=== PATIENT | female | born 1955 | race Caucasian/White ===

== ENCOUNTER → 2019-02-18 13:47 | Outpatient (CLI) | payer BC, SELFPAY ==
--- NOTE | 2019-02-18 13:47 | XR_ITS ---
XR wrist RT min 3V Ordering Physician: Bobby Perez MD Patient Age: 63 years: Female HISTORY: ITS.REASON: right distal radius fracture/ xrays in cast TECHNIQUE: 3 views right wrist. In cast. COMPARISON :Previous right wrist 02/09/2019. FINDINGS Fiberglas cast is in place partially obscuring osseous detail. The nondisplaced fracture at the transversing the distal radius is only faintly evident on the frontal projection... . There is good position and alignment at the fracture and all views. Arthritic changes first carpal-metacarpal joint otherwise noted IMPRESSION: Fracture distal radius. Good, stable position. In cast. .
--- NOTE | 2019-02-18 13:47 | XR_ITS ---
DEXA SCAN.-BONE DENSITY STUDY HIPS AND LUMBAR SPINE HISTORY: Postmenopausal female female hypothyroidism history of fracture. Takes calcium and levothyroxin and vitamin D TECHNIQUE: DEXA scan hip and lumbar spine The most complete data summary and color graphic presentation of the today's ( and any prior ) DEXA findings are available in PACS. Definition and treatment guidelines included. COMPARISON: None listed LUMBAR SPINE: L3 vertebral body demonstrates the lowest T score -0.2 with BMD1.173 g/cm sq Overall mean lumbar L1-L4 T score -1.1 with BMD1.051 g/cm sq . HIPS: Femoral neck density is best predictor of hip fracture risk . Right femoral neck demonstrates the lowest T score -1.7 with BMD0.796 g/cm sq . Left femoral neck T score -1.4 with BMD 0.849. Averaging all areas, yields today's Hip Mean T score -0.4 with BMD0.957 g/cm sq . . IMPRESSION 1. LUMBAR SPINE: Normal bone density lumbar spine. Overall and at all levels 2. HIPS: Overall bone density at hips WNL with T score = -0.4 However would note Osteopenia at the femoral necks bilaterally. Period Right femoral neck T score -1.7 and left T score -1.4 WHO criteria for post-menopausal, Women: Normal: T-score at or above -1 SD Osteopenia: T-score between -1 and -2.5 SD Osteoporosis: T-score at or below -2.5 SD
== END ==
PROVIDERS: PCP Physician Assistant; Visit Provider Orthopaedic Surgery
DX: Z13.820 Encounter for screening for osteoporosis (principal); S52.501A Unspecified fracture of the lower end of right radius, initial encounter for closed fracture
CPT/HCPCS: 73110; 77080

== ENCOUNTER → 2019-02-25 14:24 | Outpatient (CLI) | payer BC, SELFPAY ==
--- NOTE | 2019-02-25 14:28 | XR_ITS ---
XR wrist RT min 3V HISTORY follow-up fracture ITS.REASON: right wrist fracture ORDERING PHYSICIAN: Bobby Perez MD PATIENT AGE: 63 years Comparison: 02/18/2019 FINDINGS: Cast remains in place obscuring bony detail. Nondisplaced distal radial fracture remains in good alignment with the fracture line obscured by the overlying cast. IMPRESSION: Good alignment distal radial fracture with cast in place
== END ==
PROVIDERS: PCP Physician Assistant; Visit Provider Orthopaedic Surgery
DX: S52.501A Unspecified fracture of the lower end of right radius, initial encounter for closed fracture (principal)
CPT/HCPCS: 73110

== ENCOUNTER → 2019-03-25 13:59 | Outpatient (CLI) | payer BC, SELFPAY ==
--- NOTE | 2019-03-25 14:02 | XR_ITS ---
XR wrist RT min 3V HISTORY follow-up fracture ITS.REASON: out of cast ORDERING PHYSICIAN: Bobby Perez MD PATIENT AGE: 63 years Comparison: 02/25/2019 FINDINGS: Casted been removed. A nondisplaced transverse distal radial fracture with good alignment. Fracture line is still visible although there is some sclerosis at the fracture site. IMPRESSION: Healing nondisplaced distal radial fracture with good alignment
== END ==
PROVIDERS: PCP Physician Assistant; Visit Provider Orthopaedic Surgery
DX: S52.501A Unspecified fracture of the lower end of right radius, initial encounter for closed fracture (principal)
CPT/HCPCS: 73110

== ENCOUNTER 2019-03-25 15:06 | Outpatient (RCR) | payer BC, SELFPAY | END 2019-03-25 15:10 | disposition home or self-care (01) | LOC: OT 15:06 | PROVIDERS: Visit Provider Orthopaedic Surgery | DX: S52.571D Other intraarticular fracture of lower end of right radius, subsequent encounter for closed fracture with routine healing (principal) | CPT/HCPCS: 97763 ==

== ENCOUNTER 2019-03-30 11:00 | Outpatient (RCR) | payer BC, SELFPAY ==
--- NOTE | 2019-03-30 11:52 | HMH.OTOPEV ---
OT Inpatient Evaluation Rehab OT Outpatient Eval Start: 03/30/19 11:41 Freq: Status: Active Protocol: Document 03/30/19 11:41 [email or web address] (Rec: 03/30/19 11:52 [id number] Electronically Signed By Rojas Valadez OT 03/30/19 11:41 Outpatient Therapy Subjective History Subjective History Pt is a 63 year old female who reports to therapy for initial evaluation to right wrist. Approximately 6 weeks ago, pt was climbing over a baby gate and fell. Pt fractured her right distal radius. Pt recently go out of a cast, but continues to wear and wrist cock up brace for protection. Pt demosntrates with decreased AROM/Strength and adult protective caseworker strength at right wrist/hand. Pt will continue to be seen twice a week in order to address all deficits. Chief Complaint Pain,Stiff,Weakness,Decreased Process Control Supervisor Strength Symptom Type Ache,Dull Symptoms Relieved By Nothing Symptoms Aggravated By Physical Activity,Lifting Prior Functional Limitations None Current Functional Limitations Reaching,Lifting,Housework, Dressing,Driving,Sleeping Symptom Description Activity Dependent Level of pain today (0-10) 0 Pain scale - at its best (0-10) 0 Pain scale - at its worst (0-10) 2 Wrist/Hand Eval Wrist Range of Motion Right Wrist Limitations of Range of Motion Muscle Weakness Wrist Extension Active Range of Motion ( 42 degrees degrees) Wrist Flexion Active Range of Motion ( 42 degrees degrees) Wrist Radial Deviation Active Range of 28 degrees Motion (degrees) Wrist Ulnar Deviation Active Range of 26 degrees Motion (degrees) Forearm Supination Active Range of 90 degrees Motion (degrees) Forearm Pronation Active Range of Motion 90 degrees (degrees) Wrist Manual Muscle Testing Right Wrist Extension Strength Grade 4- Good- Wrist Flexion Strength Grade 3+ Fair+ Wrist Radial Deviation Strength Grade 4- Good- Wrist Ulnar Deviation Strength Grade 4- Good- Forearm Supination Strength Grade 3+ Fair+ Forearm Pronation Strength Grade 3+ Fair+ Process Control Supervisor/Pinch Strength Left Process Control Supervisor Strength Measurement (lbs) 40 Right Process Control Supervisor Strength Measurement (lbs) 18 OT Outpatient Assessment Impairments Problems/Impairments Palpation Tenderness,Impair
== END 2019-03-30 11:05 | disposition home or self-care (01) ==
LOC: OT 11:00
PROVIDERS: Visit Provider Orthopaedic Surgery
DX: S52.571D Other intraarticular fracture of lower end of right radius, subsequent encounter for closed fracture with routine healing (principal)
CPT/HCPCS: 97166

== ENCOUNTER 2020-08-22 15:01 | Emergency (ER) | payer BC, SELFPAY ==
[2020-08-22 15:02] VITALS: BP 171/95; PULSE 113; RESP 19; TEMP 37; O2SAT 100; BMI 28.1
[2020-08-22 15:24] VITALS: BMI 28.1
--- NOTE | 2020-08-22 15:28 | CT_ITS ---
PROCEDURE: CT ABDOMEN PELVIS W CON CLINICAL INDICATION: LLQ abd pain, L flank pain, diarrhea COMPARISON: No exams were available for comparison TECHNIQUE: IV Contrast: 75ML OPTIRAY 350 Oral Contrast None Axial images obtained with sagittal and coronal reformats. All CT scans at the facility use one or more dose reduction, viz: automated exposure control, ma/kV adjustment per patient size (including targeted exams where dose is matched to indication, i.e. head), or iterative reconstruction technique. FINDINGS: LOWER THORAX: There is an 11 mm noncalcified nodule in the right middle lobe. There are some atelectatic or fibrotic changes in the right middle lobe inferiorly. ABDOMEN & PELVIS: The liver, spleen, adrenal glands, and pancreas have an unremarkable appearance. There are few small periportal lymph nodes which measure up to 12 mm. These are nonspecific. The right kidney contains a few cortical cysts. There is a 6 by 3 mm stone and the left ureteropelvic junction causing mild left-sided hydronephrosis. There is mild haziness of the outline of the left kidney with some minimal perinephric fluid which could be due to pyelonephritis. There is some minimal peripheral enhancement of the left ureter. There are multiple pelvic calcifications consistent with phleboliths. There has been a prior hysterectomy. No evidence of appendicitis. No acute bony anomalies. IMPRESSION: 6 x 3 mm left ureteropelvic junction stone with mild left-sided hydronephrosis. Mild haziness of the left renal outline with minimal left perinephric fluid and minimal enhancement of the left ureter. These findings may indicate superimposed pyelonephritis/urinary tract infection along with the UPJ obstruction Indeterminate 11 mm noncalcified nodule in the right middle lobe. Suggest dedicated nonemergent chest CT for further evaluation Dictated by: Aditya aCmacho MD 08/22/2020 16:57 Aditya Camacho MD in [facility] 08/22/2020 16:57
[2020-08-22 15:35] LABS: Basophils % 0.3 % (0.1-2.0); Eosinophils # 0.1 K/mm3 (0.0-0.4); Eosinophils % 0.7 % (0.1-12.0); Hematocrit 49.2 % (37.0-47.0); Hemoglobin 16.1 g/dL (12.2-16.2); Lymphocytes # 1.8 K/mm3 (0.7-4.5); Lymphocytes % 12.1 % (10-50); Mean Corpuscular HGB Conc 32.8 g/dL (31.8-35.4); Mean Corpuscular Volume 91.6 fl (81-99); Microscopic, Urine URINE MICROSCOPIC (MICROSCOPIC); Monocytes # 0.7 K/mm3 (0.1-1.0); Monocytes % 4.7 % (1.7-9.3); Neutrophils # 12.4 K/mm3 (1.8-7.8); Neutrophils % 82.2 % (37.0-80.0); Platelet Count 257 K/mm3 (142-424); Red Blood Count 5.37 M/mm3 (4.20-5.40); Red Cell Distribution Width 12.9 % (11.5-17.5); White Blood Count 15.1 K/mm3 (4.8-10.8)
[2020-08-22 15:37] LABS: Chloride 105 mmol/L (98-107)
[2020-08-22 15:38] LABS: Potassium 4.3 mmoL/L (3.5-5.1); Sodium 142 mmol/L (136-145)
[2020-08-22 15:39] VITALS: BP 161/88; PULSE 89; RESP 20; O2SAT 94
[2020-08-22 15:39] LABS: MANUAL DIFFERENTIAL MANUAL DIFFERENTIAL (MANUAL DIFF)
[2020-08-22 15:40] LABS: Amylase 78 U/L (30-110); Appearance,Urine CLEAR (Clear); Bilirubin,Urine Negative (Negative); Blood, Urine 3+ (Negative); Color,Urine YELLOW (Yellow); Glucose,Urine (UA) 2+ (Negative); Ketones,Urine TRACE (Negative); Leukocyte Esterase,Urine Negative (Negative); Nitrate,Urine Negative (Negative); Protein,Urine Negative (Negative); Specific Gravity, Urine 1.015 (1.005-1.030); Urobilinogen,Urine 0.2 EU/dl (0.2)
[2020-08-22 15:41] LABS: Anion Gap 13.3 mEq/L (5-15); Blood Urea Nitrogen 12 mg/dl (7-17); Calcium 9.9 mg/dl (8.4-10.2); Carbon Dioxide 28 mmol/L (22.0-30.0); Creatinine Clearance Estimated 67 mL/min (50-200); Estimated Glomerular Filt Rate 50 ml/min (>60); GFR (African American) 61 ML/MIN (>60); Glucose 148 mg/dl (74-100); Lipase 116 U/L (23-300)
[2020-08-22 15:44] LABS: Eosinophils % 2 % (0-3); Lymphocytes % 10 % (10-50); Monocytes % 4 % (2-9); Neutrophils % 84 % (42-76); Total Cells Counted 100
[2020-08-22 15:45] LABS: Platelet Estimate Normal; RBC Morphology Normal
[2020-08-22 16:00] VITALS: BP 154/89; PULSE 91; RESP 18; O2SAT 97
--- NOTE | 2020-08-22 16:20 | HMH.EDABDPAI ---
ED Disposition Clinical Impression: Kidney stone on left side Disposition: Home, Self-Care Condition on Discharge: Good Instructions: DI for Kidney Stones Prescriptions: Tamsulosin HCl [Flomax 0.4mg capsule] 0.4 mg PO HS #7 cap Prescription Printed Hydrocodone/Acetaminophen [[place] 5-325 Tablet] 1 each PO TID #10 tab Prescription Printed Ondansetron [Zofran 4mg ODT] 4 mg PO TIDP PRN #10 tab PRN Reason: Nausea Prescription Printed Referrals: Yarely Hay [Primary Care Provider] - Quincy Vargas MD [Staff Physician] - - Critical Care Critical Care Time: No Attestation: On 08/22/20, the high probability of a clinically significant, sudden or life threatening deterioration of the following system(s) required my full and direct attention, intervention and personal management. The time I documented below is in addition to time spent performing reported procedures but includes the following listed in this critical care notation. Medical Decision Making - Medical Records Medical records reviewed: Yes: I reviewed the patient's medical records. - Thomas Inquiry Pt receiving controlled substance: No Vital Signs: 08/22/20 15:02 08/22/20 15:39 08/22/20 16:00 Temperature 98.6 F Temperature Source Oral Pulse Rate [Left Radial] 113 H 89 91 H Respiratory Rate 19 20 18 Blood Pressure [Right Arm] 171/95 H 161/88 H 154/89 H Blood Pressure Mean [Right Arm] 120 112 110 Blood Pressure Source [Right Arm] Automatic Cuff Automatic Cuff Automatic Cuff Blood Pressure Position [Right Arm] Sitting Sitting 02 Sat by Pulse Oximetry 100 94 L 97 Oxygen Delivery Method Room Air Room Air Room Air - Lab Data Lab Results 08/22/20 15:15: Urine Color Yellow, Urine Appearance Clear, Urine pH 6.0, Ur Specific [place] 1.015, Urine Protein Negative, Urine Glucose (UA) 2+, Urine Ketones Trace, Urine Blood 3+, Urine Nitrate Negative, Urine Bilirubin Negative, Urine Urobilinogen 0.2, Ur Leukocyte Esterase Negative, Urine RBC 10-20, Urine WBC 3-5, Ur Squamous Epith Cells 3-5 08/22/20 15:15: WBC 15.1 H, RBC 5.37, Hgb 16.1, Hct 49.2 H, MCV 91.6, MCH 30.0, MCHC 32.8, RDW 12.9, Plt Count 257, MPV 8.0, Neut % (Auto) 82.2 H, Lymph % (Auto) 12.1, Giles % (Auto) 4.7, Eos % (Auto) 0.7, Baso % (Auto) 0.3, Neut # (Auto) 12.4 H, Lymph # (Auto) 1.8, Giles # (Auto) 0.7, Eos # (Auto) 0.1, Baso # (Auto) 0.0, Total Counted 100, Neutrophils % (Manual) 84 H, Lymphocytes % (Manual) 10, Monocytes % (Manual) 4, Eosinophils % (Manual) 2, Platelet Estimate Normal, RBC Morphology Normal 08/22/20 15:15: Sodium 142, Potassium 4.3, Chloride 105, Carbon Dioxide 28, Anion Gap 13.3, BUN 12, Creatinine 1.10 H, Estimated Creat Clear 67, Estimated GFR 50 L, Est GFR ( Amer) 61, Glucose 148 H, Calcium 9.9, Amylase 78, Lipase 116 Result diagrams: 08/22/20 15:15 08/22/20 15:15 Orders (Tests/Meds): ED MEDICATIONS Generic Name Dose Route Start Last Admin Trade Name Freq PRN Reason Stop Dose Admin Sodium Chloride 10 ml 08/22/20 16:21 08/22/20 16:22 Sodium Chloride 0.9% 10ml Syr (Rad Only) IV 09/21/20 16:20 10 ml NEEDED PRN Administration Maintain IV Site Discontinued Medications Generic Name Dose Route Start Last Admin Trade Name Freq PRN Reason Stop Dose Admin Sodium Chloride 1,000 mls @ 999 mls/hr 08/22/20 15:30 08/22/20 15:28 Sod Chlor 0.9% 1000ml Bag IV 08/22/20 16:30 999 mls/hr .Q1H1M KENYA Administration Ioversol 75 ml 08/22/20 16:21 08/22/20 16:22 Ioversol-350 (74%) 100ml Vial IV 08/22/20 16:22 75 ml ONCE ONE Administration Protocol Ketorolac Tromethamine 30 mg 08/22/20 15:25 08/22/20 15:29 Ketorolac 30mg/Ml Vial IV 08/22/20 15:26 30 mg ONCE ONE Administration Morphine Sulfate 4 mg 08/22/20 17:12 Morphine 4mg/Ml Syringe IV 08/22/20 17:13 ONCE ONE Ondansetron HCl 4 mg 08/22/20 15:25 08/22/20 15:29 Ondansetron 4mg/2ml Vial IV 08/22/20 15:26 4 mg ONCE ONE Admin
[2020-08-22 17:42] VITALS: BP 145/85; PULSE 84; RESP 15; TEMP 37; O2SAT 99
== END 2020-08-22 17:43 | disposition home or self-care (01) ==
PROVIDERS: Emergency Provider Emergency Medicine; PCP Physician Assistant
DX: N20.0 Calculus of kidney (principal); I10 Essential (primary) hypertension; E11.9 Type 2 diabetes mellitus without complications; Z79.84 Long term (current) use of oral hypoglycemic drugs; F17.210 Nicotine dependence, cigarettes, uncomplicated; Z90.710 Acquired absence of both cervix and uterus
CPT/HCPCS: 74177; 80048; 81001; 82150; 83690; 85007; 85025; 96365; 96375; 96376; 99283; J2405; Q9967

== ENCOUNTER → 2020-09-18 12:31 | Outpatient (CLI) | payer BC, SELFPAY ==
--- NOTE | 2020-09-18 12:38 | CT_ITS ---
PROCEDURE: CT ABDOMEN PELVIS WO CON CLINICAL INDICATION: NEPHROLITHIASIS Hematuria and left groin pain COMPARISON: CT CT ABDOMEN PELVIS W CON from 08/22/2020 TECHNIQUE: Axial images obtained with sagittal and coronal reformats. All CT scans at the facility use one or more dose reduction, viz: automated exposure control, ma/kV adjustment per patient size (including targeted exams where dose is matched to indication, i.e. head), or iterative reconstruction technique. FINDINGS: LOWER THORAX: A 12 mm noncalcified nodule is present in the right middle lobe unchanged. There are mild atelectatic or fibrotic changes in the right middle lobe. ABDOMEN & PELVIS: The liver, gallbladder, and spleen have an unremarkable appearance. There is minimal nodularity of the right adrenal gland nonspecific and may be due to adenomatous involvement. There is a small exophytic right renal cyst at 12 mm. 2 cm left renal cyst is noted. There is mild dilatation of the left renal pelvicaliceal system and left ureter. Previously there was a stone in the proximal left ureter at the L2-L3 level. That stone has moved distally to the mid sacral region. At stone measures approximately 7 mm and is approximately 2 cm proximal to the ureterovesical junction. No intestinal obstruction or free air. No evidence of appendicitis or diverticulitis. There is a small hyperdensity in the vaginal cuff region on the left nonspecific at approximately 1.3 cm.. There has been a prior hysterectomy. There is mild degenerative disc disease at L2-L3. IMPRESSION: 1. The previously described left mid ureteral stone has moved distally to just proximal to the ureterovesical junction. There is mild left hydronephrosis and hydroureter. This stone measures approximately 7 mm. 2. Other nonacute findings as described above including a 12 mm noncalcified nodule within the right middle lobe. Dictated by: Aditya Camacho MD 09/18/2020 13:56 Aditya Camacho MD in [place] 09/18/2020 13:56
== END ==
PROVIDERS: PCP Physician Assistant; Visit Provider Physician Assistant
DX: N20.0 Calculus of kidney (principal)
CPT/HCPCS: 74176

== ENCOUNTER 2022-05-03 09:44 | Emergency (ER) | payer MEDICARE, SELFPAY ==
--- NOTE | 2022-05-03 10:03 | HMH.EDUTC ---
[facility] Disposition Clinical Impression: Hematuria Qualifiers: Hematuria type: unspecified type Qualified Code(s): R31.9 - Hematuria, unspecified UTI (urinary tract infection) Qualifiers: Urinary tract infection type: site unspecified Hematuria presence: with hematuria Qualified Code(s): N39.0 - Urinary tract infection, site not specified Disposition: Home, Self-Care Condition on Discharge: Good Instructions: Urinary Tract Infection, Urine Culture, DI for Urinary Tract Infection (UTI), Phenazopyridine Additional Instructions: Drink plenty of fluids. Take tylenol or ibuprofen for pain or fever. Take the medications as directed. Follow up with your regular doctor. GO TO THE ER FOR ANY WORSENING SYMPTOMS The pyridium will make your urine turn orange, this is an expected side effect. It will stain your clothes if it comes into contact with them. We will culture the urine. That will tell what bacteria is causing your infection and which antibiotics will treat it best. Sometimes the first antibiotic we prescribe turns out to not work against different bacteria. So, make sure you follow up within 3 days if you are not getting better. Prescriptions: Ondansetron [Zofran 4mg ODT] 4 mg PO Q8HP PRN #20 tab PRN Reason: Nausea Transmission Status: Received by [facility] Nitrofurantoin Monohyd/M-Cryst [Macrobid 100 mg Capsule] 100 mg PO BID 5 Days #10 cap Transmission Status: Received by [facility] Phenazopyridine HCl [Pyridium 200mg Tablet] 200 pow PO TID #6 tab Transmission Status: Received by [facility] Referrals: Marilu Huntley APRN [Primary Care Provider] - Time of Disposition: 10:20 Medical Decision Making - Medical Records Medical records reviewed: No: I reviewed the patient's medical records. - Thomas Inquiry Pt receiving controlled substance: No Vital Signs: 05/03/22 10:08 05/03/22 10:29 Temperature 98.3 F 98.3 F Temperature Source Oral Pulse Rate 93 H Pulse Rate [Left Radial] 93 H Respiratory Rate 17 17 Blood Pressure 164/94 H Blood Pressure [Right Arm] 164/94 H Blood Pressure Mean [Right Arm] 117 02 Sat by Pulse Oximetry 95 - Lab Data Lab results reviewed: Yes: I reviewed the patient's lab results. Lab Results 05/03/22 10:13: Urine Color Red, Urine Appearance Turbid, Urine pH 8.5, Ur Specific [place] 1.010, Urine Protein 3+, Urine Glucose (UA) Trace, Urine Ketones Moderate, Urine Blood 4+, Urine Nitrate Positive A, Urine Bilirubin 3+ A, Urine Urobilinogen >=8, Ur Leukocyte Esterase 3+ A Orders (Tests/Meds): ED MEDICATIONS Discontinued Medications Generic Name Dose Route Start Last Admin Trade Name Francisco PRN Reason Stop Dose Admin Ceftriaxone Sodium 1 gm 05/03/22 10:17 05/03/22 10:28 Ceftriaxone 1gm Vial IM 05/03/22 10:18 1 gm ONCE ONE Administration Lidocaine HCl 0 ml 05/03/22 10:05/03/22 10:27 Lidocaine 1% 5ml Pf Vial IM 05/03/22 10:18 2 ml ONCE ONE Administration ORDERS Category Date Time Status Urine Culture Stat Micro 05/03/22 10:13 Results [facility] HPI - General Stated complaint: urinating blood, painful urination Time Seen by Provider: 05/03/22 10:03 - History of Present Illness Provider Complaint: She states that she has had blood in her urine and uti symptoms for the past 2 days. She has had similar symptoms before and it was a UTI and a kidney stone, but this time she has much less pain with it. - Related Data Home Medications Medication Instructions Recorded Confirmed lisinopril 20 mg tablet 20 mg PO DAILY 02/11/19 03/25/19 metformin 500 mg tablet 500 mg PO BID 02/11/19 03/25/19 sertraline 25 mg tablet 25 mg PO DAILY 02/11/19 03/25/19 Previous Rx's Medication Instructions Recorded Hydrocodone/Acetaminophen [[place] 1 each PO TID #10 tab 08/22/20 5-325 Tablet] Ondansetron [Zofran 4mg ODT] 4 mg PO TIDP PRN #10 tab 08/22/20 Tamsulosin HCl [[place]
[2022-05-03 10:08] VITALS: BP 164/94; PULSE 93; RESP 17; TEMP 36.8; O2SAT 95; BMI 26.7
[2022-05-03 10:14] LABS: Apearance,Urine Turbid (Clear); Color,Urine Red (Yellow); Glucose,Urine (UA) Trace (Negative); PH,Urine 8.5 (5.0-8.5); Protein,Urine 3+ (Negative)
[2022-05-03 10:15] LABS: Bilirubin,Urine 3+ (Negative); Blood, Urine 4+ (Negative); Ketones,Urine Moderate (Negative); UTC Leukocyte Esterase,Urine 3+ (Negative); UTC Nitrate,Urine Positive (Negative); Urobilinogen,Urine >=8 EU/dl (0.2)
[2022-05-03 10:29] VITALS: BP 164/94; PULSE 93; RESP 17; TEMP 36.8
== END 2022-05-03 10:32 | disposition home or self-care (01) ==
PROVIDERS: Emergency Provider Nurse Practitioner Family; PCP Nurse Practitioner Family
DX: N30.01 Acute cystitis with hematuria (principal); M54.9 Dorsalgia, unspecified; N20.0 Calculus of kidney; E11.9 Type 2 diabetes mellitus without complications; F17.210 Nicotine dependence, cigarettes, uncomplicated; Z79.84 Long term (current) use of oral hypoglycemic drugs; Z79.899 Other long term (current) drug therapy; Z82.49 Family history of ischemic heart disease and other diseases of the circulatory system; Z83.3 Family history of diabetes mellitus
CPT/HCPCS: 81003; 87086; 87088; 87186; 96372; 99213; G0463; J0696

== ENCOUNTER 2024-03-15 15:41 | Outpatient (CLI) | payer MEDICARE, SELFPAY ==
[2024-03-15 16:13] LABS: Basophils # 0.1 K/mm3 (0-0.2); Basophils % 0.9 % (0.1-2.0); Eosinophils # 0.2 K/mm3 (0.0-0.4); Eosinophils % 3.8 % (0.1-12.0); Hematocrit 42.2 % (37.0-47.0); Hemoglobin 13.8 g/dL (12.2-16.2); Lymphocytes # 1.9 K/mm3 (0.7-4.5); Lymphocytes % 31.6 % (10-50); Mean Corpuscular HGB Conc 32.7 g/dL (31.8-35.4); Mean Corpuscular Hemoglobin 31.4 pg (27.0-31.2); Mean Corpuscular Volume 96.1 fl (81-99); Mean Platelet Volume 8.5 fl (7.4-10.4); Monocytes # 0.3 K/mm3 (0.1-1.0); Monocytes % 5.6 % (1.7-9.3); Neutrophils # 3.5 K/mm3 (1.8-7.8); Neutrophils % 58.1 % (37.0-80.0); Platelet Count 243 K/mm3 (142-424); Red Cell Distribution Width 14.3 % (11.5-17.5)
[2024-03-15 16:32] LABS: Alanine Aminotransferase 63 U/L (12-78); Albumin Level 4.4 g/dl (3.5-5.0); Albumin/Globulin Ratio 1.9 (1.1-1.8); Alkaline Phosphatase 52 U/L (38-126); Anion Gap 9.1 mEq/L (5-15); Aspartate Amino Transferase 52 U/L (14-36); Bilirubin,Total 1.4 mg/dl (0.2-1.3); Blood Urea Nitrogen 12 mg/dl (7-17); Carbon Dioxide 29 mmol/L (22.0-30.0); Chloride 107 mmol/L (98-107); Estimated Glomerular Filt Rate 72 ml/min (>60); GFR (African American) 87 ML/MIN (>60); Globulin 2.3 g/dL (1.3-3.2); Glucose 136 mg/dl (74-100); Potassium 4.1 mmoL/L (3.5-5.1); Sodium 141 mmol/L (136-145); Total Protein,Serum 6.7 g/dl (6.3-8.2)
[2024-03-15 16:37] LABS: C-Reactive Protein 0.8 mg/L (0-4)
[2024-03-15 17:17] LABS: Erythrocyte Sedimentation Rate 14 mm/hr (0-30)
== END 2024-03-15 23:59 | disposition home or self-care (01) ==
LOC: LAB 15:43
PROVIDERS: PCP Nurse Practitioner Family; Visit Provider Internal Medicine
DX: D89.9 Disorder involving the immune mechanism, unspecified (principal); M05.79 Rheumatoid arthritis with rheumatoid factor of multiple sites without organ or systems involvement; Z79.899 Other long term (current) drug therapy
CPT/HCPCS: 36415; 80053; 85025; 85651; 86140

== ENCOUNTER 2024-05-17 15:17 | Outpatient (CLI) | payer MEDICARE, SELFPAY ==
[2024-05-17 15:41] LABS: Basophils # 0.1 K/mm3 (0-0.2); Basophils % 0.8 % (0.1-2.0); Eosinophils # 0.2 K/mm3 (0.0-0.4); Eosinophils % 2.9 % (0.1-12.0); Hematocrit 41.9 % (37.0-47.0); Hemoglobin 13.7 g/dL (12.2-16.2); Lymphocytes # 2.1 K/mm3 (0.7-4.5); Lymphocytes % 29.3 % (10-50); Mean Corpuscular HGB Conc 32.6 g/dL (31.8-35.4); Mean Corpuscular Hemoglobin 31.8 pg (27.0-31.2); Mean Corpuscular Volume 97.6 fl (81-99); Monocytes # 0.3 K/mm3 (0.1-1.0); Monocytes % 4.8 % (1.7-9.3); Neutrophils # 4.4 K/mm3 (1.8-7.8); Neutrophils % 62.2 % (37.0-80.0); Platelet Count 279 K/mm3 (142-424); Red Cell Distribution Width 14.6 % (11.5-17.5); White Blood Count 7.1 K/mm3 (4.8-10.8)
[2024-05-17 16:29] LABS: Erythrocyte Sedimentation Rate 21 mm/hr (0-30)
[2024-05-17 17:13] LABS: Alanine Aminotransferase 51 U/L (12-78); Albumin Level 4.4 g/dl (3.5-5.0); Albumin/Globulin Ratio 1.6 (1.1-1.8); Alkaline Phosphatase 47 U/L (38-126); Anion Gap 12.2 mEq/L (5-15); Aspartate Amino Transferase 43 U/L (14-36); Bilirubin,Total 1.5 mg/dl (0.2-1.3); Blood Urea Nitrogen 16 mg/dl (7-17); Calcium 9.6 mg/dl (8.4-10.2); Carbon Dioxide 31 mmol/L (22.0-30.0); Chloride 100 mmol/L (98-107); Estimated Glomerular Filt Rate 62 ml/min (>60); GFR (African American) 76 ML/MIN (>60); Globulin 2.8 g/dL (1.3-3.2); Glucose 218 mg/dl (74-100); Potassium 4.2 mmoL/L (3.5-5.1); Sodium 139 mmol/L (136-145); Total Protein,Serum 7.2 g/dl (6.3-8.2)
[2024-05-17 17:20] LABS: C-Reactive Protein 1.5 mg/L (0-4)
[2024-05-17 17:35] LABS: 25-OH Vitamin D, Total 77.5 ng/mL (30-100)
[2024-05-17 17:45] LABS: Thyroid Stimulating Hormone 0.98 uIU/mL (0.465-4.68)
[2024-05-17 18:21] LABS: Vitamin B12 363 pg/mL (239-931)
[2024-05-17 18:26] LABS: Folate > 20.00 ng/mL
[2024-05-17 19:14] LABS: Iron 126 ug/dL (37-170)
[2024-05-17 19:23] LABS: Total Iron Binding Capacity 341 ug/dL (265-497)
[2024-05-17 19:50] LABS: Ferritin 59.1 ng/ml (11.1-264)
== END 2024-05-17 23:59 | disposition home or self-care (01) ==
LOC: LAB 15:21
PROVIDERS: PCP Nurse Practitioner Family; Visit Provider Internal Medicine
DX: Z79.899 Other long term (current) drug therapy (principal); E61.1 Iron deficiency; E55.9 Vitamin D deficiency, unspecified
CPT/HCPCS: 36415; 80050; 80053; 82306; 82607; 82728; 82746; 83540; 83550; 84443; 85025; 85651; 86140